=== PATIENT | male | born 1965 | race African-American/Black ===

== ENCOUNTER 2017-11-25 06:11 | Day surgery (SDC) | payer OTHER ==
[2017-11-25] MEDS ORDERED: LACTATED RINGERS 1,000 ML IV ONE (06:44)
[2017-11-25] MEDS ORDERED: fentaNYL 100 MCG/2 ML VIAL IVP ONE (08:11)
[2017-11-25] MEDS ORDERED: MIDAZOLAM 2 MG/2 ML VIAL IVP ONE (08:11)
[2017-11-25 08:50] VITALS: BP 127/65
== END 2017-11-25 06:12 | disposition home or self-care (01) ==
LOC: SDS 06:11
PROVIDERS: ATTEND Surgery
PROC: 0DJD8ZZ Inspection of Lower Intestinal Tract, Via Natural or Artificial Opening Endoscopic (ICD-10-PCS; principal; 2017-11-25 07:30)
DX: Z12.11 Encounter for screening for malignant neoplasm of colon (principal); K57.30 Diverticulosis of large intestine without perforation or abscess without bleeding; K64.8 Other hemorrhoids; I10 Essential (primary) hypertension; E11.9 Type 2 diabetes mellitus without complications; Z87.891 Personal history of nicotine dependence
CPT/HCPCS: 45378; J7120

== ENCOUNTER 2018-02-28 09:30 | Outpatient (CLI) | payer OTHER ==
[2018-02-28 16:51] LABS: HEMOGLOBIN A1C 0.94 g/dL; HEMOGLOBIN A1C % 7.5 % (4.6-6.2)
== END 2018-02-28 09:31 | disposition home or self-care (01) ==
LOC: LAB.R 09:30
PROVIDERS: ATTEND Internal Medicine
DX: E10.9 Type 1 diabetes mellitus without complications (principal)
CPT/HCPCS: 83036